=== PATIENT | female | born 1995 | race Caucasian/White ===

== ENCOUNTER 2018-09-08 08:16 | Day surgery (SDC) | payer MEDICAID ==
[2018-09-02 08:39] VITALS: BMI 20.7
[~2018-09-08 08:16] MED LIST: DEXAMETHASONE SOD PHOSPHATE 10 MG/ML 1 ML VIAL IV ONE; DEXAMETHASONE SOD PHOSPHATE 4 MG/ML 1 ML VIAL IV ONE; FAMOTIDINE 20 MG/2 ML VIAL IV ONE; HYDROmorphone 0.5 MG/0.5 ML SYRINGE IVP PRN; LACTATED RINGERS 1,000 ML IV SCH; MIDAZOLAM 2 MG/2 ML VIAL IV PRN; ONDANSETRON 4 MG/2 ML VIAL IVP ONE; Pre Op ABX Message 1 EACH MISC MISCELLANE ONE; SCOPOLAMINE 1.5MG/72HR PATCH TRANSDERM ONE; ceFAZolin 1,000 MG in DEXTROSE/WATER 1 50ML.BAG IV ONE
[2018-09-08 08:59] VITALS: RESP 16
[2018-09-08] MEDS ORDERED: DEXAMETHASONE SOD PHOS (MDV) 100 MG/10 ML VIAL ONE (10:00)
[2018-09-08] MEDS ORDERED: PROPOFOL 10 MG/ML 20 ML VIAL IV ONE (10:00)
[2018-09-08] MEDS ORDERED: ROCURONIUM BROMIDE 10 MG/ML 10 ML VIAL IV ONE (10:00)
[2018-09-08] MEDS ORDERED: LIDOCAINE 1% INJ 10MG/ML (20 ML MDV) ONE (10:00)
[2018-09-08] MEDS ORDERED: MIDAZOLAM 2 MG/2 ML VIAL ONE (10:00)
[2018-09-08] MEDS ORDERED: NEOSTIGMINE 1 MG/ML 10 ML VIAL ONE (10:00)
[2018-09-08] MEDS ORDERED: fentaNYL (PF) 50 MCG/ML 2 ML AMP ONE (10:00)
[2018-09-08] MEDS ORDERED: GLYCOPYRROLATE 0.2 MG/ML 2 ML VIAL ONE (10:00)
--- NOTE | 2018-09-08 10:49 | P.OP ---
Date of Procedure: 09/08/18 Preoperative Diagnosis: Chronic tonsillitis Postoperative Diagnosis: Same Procedure(s) Performed: Tonsillectomy Anesthesia: HARINDER Surgeon: Júnior Hemphill Estimated Blood Loss (ml): 2 Pathology: other (Bilateral tonsils) Condition: stable Disposition: PACU Indications for Procedure: This 23-year-old white female whose had difficulties with chronic and recurrent tonsillitis Operative Findings: Tonsils +3 bilaterally-they are cryptic with debris in the crypts Description of Procedure: Patient was brought in the operative suite and placed in a supine position. Patient underwent induction of general anesthesia with oral endotracheal intubation without difficulty. The patient prepped and draped using aseptic fashion. The McIvor mouth gag was placed. Soft palate palpated and no submucous cleft was noted. Nasopharynx examined with a mirror exam and there was no significant adenoid tissue noted. The left tonsil was grasped with a curved Allis clamp and dissected from tonsillar fossa in a superior to inferior direction using both blunt and electrocautery dissection until tonsils removed. Once tonsils removed hemostasis gained with suction cautery. Attention was then turned to the right where the right tonsil was removed exactly as the left had been. Once this tonsils removed hemostasis gained with suction cautery. This hemostasis was obtained and remained good in both tonsillar fossa the patient was suctioned in oral gastric fashion the McIvor mouth gag was removed. Patient allowed to emerge from general anesthesia and having tolerated the procedure well was extubated in the operating suite and transferred to postop recovery area in satisfactory condition.
[2018-09-08 11:08] VITALS: TEMP 98
[2018-09-08 12:25] VITALS: BP 97/63; PULSE 73
[2018-09-08] MEDS ORDERED: ONDANSETRON 4 MG/2 ML VIAL IVP ONE (13:34)
== END 2018-09-08 13:50 | disposition home or self-care (01) ==
LOC: OR 08:16
PROVIDERS: ATTEND Otolaryngology
DX: J35.01 Chronic tonsillitis (principal); J02.9 Acute pharyngitis, unspecified; F32.9 Major depressive disorder, single episode, unspecified; F41.9 Anxiety disorder, unspecified; Z91.018 Allergy to other foods; J35.8 Other chronic diseases of tonsils and adenoids; Z79.899 Other long term (current) drug therapy
CPT/HCPCS: 81025; 88304; 42826; J2250; J1100 ×2; J2710; J2405; J2001; J3010; J2704